=== PATIENT | female | born 1965 | race Caucasian/White ===

== ENCOUNTER 2024-09-15 12:11 | Emergency (ER) | payer OTHER ==
[~2024-09-15] VITALS: Ht 167.6 cm; Wt 79.4 kg
[~2024-09-15 12:11] MED LIST: CYCLOBENZAPRINE10 MG PO
[2024-09-15] MEDS: KETOROLAC TROMETHAMINE 60 MG/2 ML VIAL IM ONE (12:55)
[2024-09-15] MEDS: CYCLOBENZAPRINE HCL 10 MG TAB PO ONE (12:56)
[2024-09-15] MEDS: HYDROCODONE/APAP 5MG-325MG TAB PO ONE ×2 (12:56→14:13)
[2024-09-15] MEDS ORDERED: KETOROLAC TROME10 MG PO (13:59)
[2024-09-15] MEDS ORDERED: METHOCARBAMOL750 MG PO (13:59)
[2024-09-15 14:11] VITALS: PULSE 78; RESP 18; TEMP 98.4; O2SAT 98
== END 2024-09-15 14:19 | disposition home or self-care (01) ==
LOC: FSED 12:15
DX: M25.511 Pain in right shoulder (principal); M25.611 Stiffness of right shoulder, not elsewhere classified
CPT/HCPCS: 73030; 99284; J1885

== ENCOUNTER 2025-04-02 20:34 | Emergency (ER) | payer OTHER ==
[~2025-04-02] VITALS: Ht 167.6 cm; Wt 82.6 kg
[~2025-04-02 20:34] MED LIST changes: +KETOROLAC TROME10 MG PO; +METHOCARBAMOL750 MG PO
[2025-04-02 21:08] VITALS: PULSE 90; RESP 14; TEMP 99; O2SAT 96
[2025-04-02] MEDS ORDERED: ACETAMINOPHEN 325 MG TAB PO ONE (21:30)
== END 2025-04-02 22:20 | disposition left against medical advice (07) ==
LOC: FSED 21:07
DX: R51.9 Headache, unspecified (principal); J02.9 Acute pharyngitis, unspecified; J06.9 Acute upper respiratory infection, unspecified; R19.7 Diarrhea, unspecified
CPT/HCPCS: 99283